=== PATIENT | female | born 1995 | race Caucasian/White ===

== ENCOUNTER 2016-11-20 13:43 | Emergency (ER) | payer OTHER ==
[~2016-11-20] VITALS: Ht 152.4 cm; Wt 104.5 kg
[2016-11-20 13:47] VITALS: BP 123/83; TEMP 98.5
[2016-11-20] MEDS ORDERED: AMOXICILLIN 50500 MG PO (14:07)
[2016-11-20] MEDS ORDERED: RAYOS2 MG PO (14:07)
[2016-11-20] MEDS ORDERED: PROAIR HFA0.09 MG/AC IH (14:08)
[2016-11-20] MEDS ORDERED: ALBUTEROL0.83 MG/ML IH (14:08)
[2016-11-20] MEDS ORDERED: ZYRTEC5 MG PO (14:09)
[2016-11-20] MEDS ORDERED: ALLEGRA-D TABLE1 TAB PO (14:09)
[2016-11-20] MEDS ORDERED: RT ADVAIR 128 DISKUS IH (14:10)
[2016-11-20 14:39] LABS: BASO # 0.1 (0.0-0.2); BASO % 0.7 % (0.0-2.0); EOS # 0.2 (0.0-0.7); EOS % 1.6 % (0-4.0); GRAN # 10.6 (1.4-6.5); GRAN % 87.8 % (42.2-75.2); HEMATOCRIT 40.4 % (37.0-47.0); HEMOGLOBIN 13.2 g/dl (12.5-16.0); LYMPH # 0.7 (1.2-3.4); LYMPH % 5.5 % (20.0-51.0); MEAN CELL VOLUME 88 fl (80.0-100.0); MEAN CORPUSCULAR HEMOGLOBIN 29 pg (27.0-31.0); MEAN CORPUSCULAR HGB CONC 33 g/dl (33.0-37.0); MEAN PLATELET VOLUME 10.9 fl (7.4-10.4); MONO # 0.5 (0.1-0.6); MONO % 4.1 % (1.7-9.3); PLATELET COUNT 281 K/mm3 (130-400); REDCELL DISTRIBUTION WIDTH-CV 14.4 % (11.5-14.5)
[2016-11-20 14:50] LABS: ADJUSTED CALCIUM 9.3 mg/dL (8.4-10.2); ALBUMIN 4.6 gm/dL (3.5-5.0); BILIRUBIN,TOTAL 0.4 mg/dL (0.0-1.0); CALCIUM 9.8 mg/dL (8.4-10.2); CREATININE, serum 0.57 mg/dL (0.52-1.25)
[2016-11-20 15:12] LABS: INFLUENZA B NEGATIVE
[2016-11-20] MEDS ORDERED: ZITHROMAX500 M2 PO (15:53)
[2016-11-20 18:53] VITALS: PULSE 88
== END 2016-11-20 18:36 | disposition home or self-care (01) ==
LOC: COL.ER 13:43
PROVIDERS: Emergency Medicine
DX: J45.901 Unspecified asthma with (acute) exacerbation (principal); J18.9 Pneumonia, unspecified organism; J32.9 Chronic sinusitis, unspecified
CPT/HCPCS: J0696; J2930; J3105; J3475; J7030

== ENCOUNTER 2016-11-20 22:13 | Inpatient (IN) | payer OTHER ==
[~2016-11-20] VITALS: Ht 175.3 cm; Wt 102.7 kg
[~2016-11-20 22:13] MED LIST: ALBUTEROL0.83 MG/ML IH; ALLEGRA-D TABLE1 TAB PO; AMOXICILLIN 50500 MG PO; PROAIR HFA0.09 MG/AC IH; RAYOS2 MG PO; RT ADVAIR 128 DISKUS IH; ZITHROMAX500 M2 PO; ZYRTEC5 MG PO
[2016-11-20 23:27] LABS: ARTERIAL BLD GAS O2 SATURATION 92.2 % (92-100); ARTERIAL BLD GAS TCO2 CT 19.4; ARTERIAL BLOOD GAS BASE EXCESS -4.4 (-2-2); ARTERIAL BLOOD GAS HCO3 18.5 meq/L (22-26); ARTERIAL BLOOD GAS PHT 7.43 C (7.35-7.45); ARTERIAL BLOOD GAS PO2 61.6 mmHg (80-100); ARTERIAL BLOOD GAS PO2T 61.6 (80-100); ARTERIAL BLOOD GAS pH 7.43 (7.35-7.45); OXYHEMOGLOBIN 91.4 %
[2016-11-20 23:29] LABS: ALLEN TEST YES; ALLENS TEST RESULT PASS; ATS? YES
[2016-11-20 23:40] LABS: HEMATOCRIT 41.4 % (37.0-47.0); HEMOGLOBIN 13.8 g/dl (12.5-16.0); MEAN CELL VOLUME 87 fl (80.0-100.0); MEAN CORPUSCULAR HEMOGLOBIN 29 pg (27.0-31.0); MEAN CORPUSCULAR HGB CONC 33 g/dl (33.0-37.0); MEAN PLATELET VOLUME 10.7 fl (7.4-10.4); PLATELET COUNT 302 K/mm3 (130-400); RED BLOOD COUNT 4.77 M/mm3 (4.10-5.30); REDCELL DISTRIBUTION WIDTH-CV 14.3 % (11.5-14.5); WHITE BLOOD COUNT 11.4 K/mm3 (4.8-10.8)
[2016-11-20 23:41] LABS: ADD PATHOLOGY DIFF REVIEW NO
[2016-11-20 23:48] LABS: BAND 1 % (0-10); NEUTROPHILS 96 % (42.0-75.2); PLATELET ESTIMATE NORMAL (NORMAL); TOTAL CELLS COUNTED 100
[2016-11-20 23:54] LABS: C-REACTIVE PROTEIN 3.1 mg/dL (0.0-0.9)
[2016-11-21] VITALS (713 sets, daily range): BP systolic 97–151; BP diastolic 66–95; PULSE 111–139; TEMP 97.6–99.9; O2SAT 86–100
[2016-11-21 03:19] LABS: ALLEN TEST YES; ARTERIAL BLD GAS O2 SATURATION 93.1 % (92-100); ARTERIAL BLD GAS TCO2 CT 20.3; ARTERIAL BLOOD GAS BASE EXCESS -6.1 (-2-2); ARTERIAL BLOOD GAS HCO3 19.2 meq/L (22-26); ARTERIAL BLOOD GAS PO2 73.3 mmHg (80-100); ARTERIAL BLOOD GAS pH 7.33 (7.35-7.45); ATS? YES; OXYHEMOGLOBIN 92.4 %
[2016-11-21 03:20] LABS: ALLENS TEST RESULT PASS
[2016-11-21 05:25] LABS: ARTERIAL BLD GAS O2 SATURATION 95.4 % (92-100); ARTERIAL BLD GAS TCO2 CT 22.5; ARTERIAL BLOOD GAS BASE EXCESS -5.5 (-2-2); ARTERIAL BLOOD GAS HCO3 21.1 meq/L (22-26); ARTERIAL BLOOD GAS PHT 7.29 C (7.35-7.45); ARTERIAL BLOOD GAS PO2 83.1 mmHg (80-100); ARTERIAL BLOOD GAS PO2T 83.1 (80-100); ARTERIAL BLOOD GAS pH 7.29 (7.35-7.45); OXYHEMOGLOBIN 94.7 %
[2016-11-21 05:26] LABS: ALLEN TEST YES; ALLENS TEST RESULT PASS; ATS? YES
[2016-11-21 06:02] LABS: BASO % 0.2 % (0.0-2.0); GRAN # 17.4 (1.4-6.5); GRAN % 95.7 % (42.2-75.2); HEMATOCRIT 40.7 % (37.0-47.0); HEMOGLOBIN 13.4 g/dl (12.5-16.0); LYMPH # 0.5 (1.2-3.4); MEAN CELL VOLUME 88 fl (80.0-100.0); MEAN CORPUSCULAR HEMOGLOBIN 29 pg (27.0-31.0); MEAN CORPUSCULAR HGB CONC 33 g/dl (33.0-37.0); MEAN PLATELET VOLUME 10.8 fl (7.4-10.4); MONO # 0.1 (0.1-0.6); MONO % 0.7 % (1.7-9.3); PLATELET COUNT 290 K/mm3 (130-400); RED BLOOD COUNT 4.62 M/mm3 (4.10-5.30); REDCELL DISTRIBUTION WIDTH-CV 14.6 % (11.5-14.5); WHITE BLOOD COUNT 18.1 K/mm3 (4.8-10.8)
[2016-11-21 06:12] LABS: CALCIUM 9.2 mg/dL (8.4-10.2); CREATININE, serum 0.55 mg/dL (0.52-1.25); POTASSIUM 4.4 mmol/L (3.4-5.0)
[2016-11-21 07:57] LABS: ARTERIAL BLD GAS O2 SATURATION 96.1 % (92-100); ARTERIAL BLD GAS TCO2 CT 22.3; ARTERIAL BLOOD GAS BASE EXCESS -4.6 (-2-2); ARTERIAL BLOOD GAS PHT 7.33 C (7.35-7.45); ARTERIAL BLOOD GAS PO2 87.6 mmHg (80-100); ARTERIAL BLOOD GAS PO2T 87.6 (80-100); ARTERIAL BLOOD GAS pH 7.33 (7.35-7.45); OXYHEMOGLOBIN 95.4 %
[2016-11-21 08:00] LABS: ATS? YES
[2016-11-21 10:54] LABS: ARTERIAL BLD GAS O2 SATURATION 98.3 % (92-100); ARTERIAL BLD GAS TCO2 CT 20.8; ARTERIAL BLOOD GAS BASE EXCESS -6.7 (-2-2); ARTERIAL BLOOD GAS HCO3 19.5 meq/L (22-26); ARTERIAL BLOOD GAS PHT 7.29 C (7.35-7.45); ARTERIAL BLOOD GAS pH 7.29 (7.35-7.45); OXYHEMOGLOBIN 97.3 %
[2016-11-21 10:57] LABS: ARTERIAL BLOOD GAS PO2 151.5 mmHg (80-100)
[2016-11-21 11:01] LABS: ARTERIAL BLOOD GAS PO2T 151.5 (80-100)
[2016-11-21 11:02] LABS: ATS? YES
[2016-11-21 13:18] LABS: ARTERIAL BLOOD GAS BASE EXCESS -6.4 (-2-2); ARTERIAL BLOOD GAS HCO3 22.2 meq/L (22-26); ARTERIAL BLOOD GAS PO2 75.5 mmHg (80-100); ARTERIAL BLOOD GAS PO2T 75.5 (80-100); OXYHEMOGLOBIN 92.1 %
[2016-11-21 13:19] LABS: ATS? YES
[2016-11-21 13:20] LABS: ABG VENTILATOR TIDAL VOLUME 450 mL
[2016-11-21 14:44] LABS: PH 5 (5-8); SQUAMOUS EPITHELIAL 0-2 /hpf; URINE APPEARANCE Cloudy; URINE BACTERIA Rare /hpf; URINE BILIRUBIN Negative (NEGATIVE); URINE BLOOD 1+ (NEGATIVE); URINE COLOR Yellow; URINE GLUCOSE 1+ (NEGATIVE); URINE KETONE 2+ (NEGATIVE); URINE RBC 20-50 /hpf; URINE UROBILINOGEN Negative (NEGATIVE)
[2016-11-21 15:05] LABS: AMPHETAMINE URINE NEGATIVE; BARBITURATES URINE NEGATIVE; BENZODIAZEPINES URINE POSITIVE; BUPRENORPHINE URINE NEGATIVE; METHADONE URINE NEGATIVE; OPIATES URINE POSITIVE; OXYCODONE URINE NEGATIVE; PHENCYCLIDINE URINE NEGATIVE; PROPOXYPHENE URINE NEGATIVE; THC CANNABINOIDS URINE NEGATIVE
[2016-11-21 15:28] LABS: ARTERIAL BLD GAS O2 SATURATION 94.7 % (92-100); ARTERIAL BLD GAS TCO2 CT 23.7; ARTERIAL BLOOD GAS BASE EXCESS -5.7 (-2-2); ARTERIAL BLOOD GAS HCO3 22.1 meq/L (22-26); ARTERIAL BLOOD GAS PHT 7.24 C (7.35-7.45); ARTERIAL BLOOD GAS pH 7.24 (7.35-7.45); OXYHEMOGLOBIN 93.8 %
[2016-11-21 15:30] LABS: ABG VENTILATOR TIDAL VOLUME 420 mL; ATS? NO
== END 2016-11-21 17:06 | disposition short-term general hospital (02) | DRG 208 ==
LOC: COL.ER 22:13 → MEDICAL 23:47 → ICU 11-21 03:22 → MEDICAL 11-21 03:22 → ICU 11-21 03:22
PROVIDERS: Family Medicine; Internal Medicine Pulmonary Disease
PROC: 5A1935Z Respiratory Ventilation, Less than 24 Consecutive Hours (ICD-10-PCS; principal; 2016-11-20)
PROC: 0BH17EZ Insertion of Endotracheal Airway into Trachea, Via Natural or Artificial Opening (ICD-10-PCS; 2016-11-20)
DX: J45.41 Moderate persistent asthma with (acute) exacerbation (principal); J18.9 Pneumonia, unspecified organism; J96.02 Acute respiratory failure with hypercapnia; E87.4 Mixed disorder of acid-base balance
CPT/HCPCS: 99239; C1751; C1894; J0456; J0696; J1100; J1650; J2060; J2250; J2270; J2704; J2930; J3010; J7030; J7040; J7050